=== PATIENT | male | born 1995 | race American Indian/Alaskan Native ===

== ENCOUNTER 2020-09-10 19:45 | Observation (INO) | payer MEDICAID ==
--- NOTE | 2020-09-10 20:21 | Emergency Department Report ---
Blank Doc - Documentation Documentation: This is a 24-year-old male that presents with left inguinal swelling. Exam: Possible incarcerated left inguinal hernia. Unable to reduce. Exam does not show gangrene. 1- This initial assessment/diagnostic orders/clinical plan/ treatment(s) is/are subject to change based on pt's health status, clinical progression and re- assessment by fellow clinical providers in the ED. Further treatment and workup at subsequent clinical provers discretion. Patient/guardians urged not to elope from ED as their condition may be serious if not clinically assessed and managed. 2-labs 3-UA
[2020-09-10 21:29] LABS: Basophils # (Auto) 0.1 K/mm3 (0.0-0.1); Basophils % (Auto) 0.9 % (0.0-1.8); Eosinophils # (Auto) 0.1 K/mm3 (0.0-0.4); Eosinophils % (Auto) 1.4 % (0.0-4.3); Hematocrit 39.1 % (35.5-45.6); Hemoglobin 13.5 gm/dl (11.8-15.2); Lymphocytes % (Auto) 22.7 % (13.4-35.0); Mean Corpuscular HGB Conc 35 % (32-34); Mean Corpuscular Volume 85 fl (84-94); Monocytes # (Auto) 1.2 K/mm3 (0.0-0.8); Monocytes % (Auto) 13.1 % (0.0-7.3); Platelet Count 317 K/mm3 (140-440); Red Blood Count 4.62 M/mm3 (3.65-5.03); Red Cell Distribution Width 13.6 % (13.2-15.2)
[2020-09-10 21:45] LABS: BUN/Creatinine Ratio 10; Blood Urea Nitrogen 10 mg/dL (9-20); Calcium 9.3 mg/dL (8.4-10.2); Hemolysis Index 12
[2020-09-11] MEDS ORDERED: ONDANSETRON 4 MG/2 ML INJ IV ONE (02:14)
[2020-09-11] MEDS ORDERED: MORPHINE 4 MG/1 ML INJ IV ONE (02:14)
--- NOTE | 2020-09-11 02:17 | Emergency Department Report ---
ED Male HPI - General Chief complaint: Skin/Abscess/Foreign Body Stated complaint: LUMP ON GROIN Time Seen by Provider: 09/10/20 19:46 Source: patient Mode of arrival: Ambulatory Limitations: No Limitations - History of Present Illness Initial comments: Chief complaint: "Hernia" HPI: This is a 24-year-old male who presents with left groin hernia which occurred 2 days ago. He did not have a hernia prior to this time. He has a painful bulge in the left groin region. He does not have a history of physical activity heavy straining. He is currently unemployed. Sharp right hand pain without radiation. Worse with movement. Worse with certain positions. He denies fever, vomiting, constipation. MD Complaint: groin pain -: Gradual, days(s) (2 days) Location: left inguinal region Severity: severe Severity scale (0 -10): 8 Quality: aching, sharp Consistency: constant Improves with: supine Worsens with: palpation, movement denies other symptoms - Related Data Allergies Allergy/AdvReac Type Severity Reaction Status Date / Time No Known Allergies Allergy Verified 09/10/20 20:06 ED Review of Systems ROS: Stated complaint: LUMP ON GROIN Other details as noted in HPI Comment: All other systems reviewed and negative Constitutional: denies: fever, malaise Respiratory: denies: cough, shortness of breath Gastrointestinal: denies: abdominal pain, nausea, vomiting Musculoskeletal: denies: back pain ED Past Medical Hx - Past Medical History Previous Medical History?: No - Surgical History Past Surgical History?: No - Social History Smoking Status: Never Smoker Substance Use Type: None ED Physical Exam - General Limitations: No Limitations General appearance: alert, in no apparent distress - Head Head exam: Present: atraumatic, normocephalic - Eye Eye exam: Present: normal appearance - ENT ENT exam: Present: mucous membranes moist - Neck Neck exam: Present: normal inspection, full ROM - Respiratory Respiratory exam: Present: normal lung sounds bilaterally. Absent: respiratory distress, wheezes, rales, rhonchi - Cardiovascular Cardiovascular Exam: Present: regular rate, normal rhythm, normal heart sounds. Absent: systolic murmur, diastolic murmur, rubs, gallop - GI/Abdominal GI/Abdominal exam: Present: soft. Absent: distended, tenderness, guarding, kelsie ound - exam: Present: other (Tender tense bulge at the left inguinal measurement 6 x 3 cm) - Neurological Exam Neurological exam: Present: alert, oriented X3 - Psychiatric Psychiatric exam: Present: normal affect, normal mood - Skin Skin exam: Present: warm, dry, intact, normal color. Absent: rash ED Course Vital Signs 09/10/20 09/11/20 09/11/20 20:08 02:31 02:45 Temperature 98.5 F Pulse Rate 72 52 L Respiratory 16 18 20 Rate Blood Pressure 104/64 117/66 O2 Sat by Pulse 99 100 Oximetry 09/11/20 09/11/20 09/11/20 03:01 03:15 03:31 Temperature Pulse Rate 55 L 56 L 55 L Respiratory 19 12 15 Rate Blood Pressure 117/66 103/67 103/67 O2 Sat by Pulse 98 100 97 Oximetry 09/11/20 09/11/20 09/11/20 03:45 04:15 04:31 Temperature Pulse Rate 52 L 67 52 L Respiratory 14 13 14 Rate Blood Pressure 114/67 114/67 118/71 O2 Sat by Pulse 100 100 Oximetry 09/11/20 05:01 Temperature Pulse Rate 55 L Respiratory 13 Rate Blood Pressure 110/66 O2 Sat by Pulse 99 Oximetry ED Medical Decision Making - Lab Data Result diagrams: 09/10/20 21:01 09/10/20 21:01 - Radiology Data Radiology results: report reviewed CT abdomen pelvis w con INDICATION: left incarcerated inguinal hernia. TECHNIQUE: All CT scans at this location are performed using the following dose modulation technique: Automated exposure control. CONTRAST: Omnipaque 300, 100 cc IV injection. COMPARISON: None available. CT ABDOMEN: The parenchymal organs are unremarkable in appearance. Negative for abdominal mass, fluid or inflammation. The bowel is not dilated or thickened. CT PELVIS: Negative for pelvic mass, fluid or inflammation. No incarcerated hernia is present. Nodes at the left external iliac chain. The largest measures 1.4 cm in the greatest short axis dimension. Enlarged lymph nodes are seen at the left groin with the largest measuring 2.5 x 1.9 cm. One notes demonstrates prominent adjacent inflammation. IMPRESSION: 1. Prominent adenopathy with prominent inflammation adjacent to one of the nodes left groin. 2. Mild adenopathy left external iliac chain. 3. No incarcerated hernia. - Medical Decision Making Initial clinical impression: Incarcerated inguinal hernia after discussion with general surgeon Dr. Henry she recommended CT abdomen pelvis to determine if bowel is involved. CT abdomen pelvis did not reveal incarcerated hernia. Findings included inguinal lymphadenopathy. I reassessed patient after ice therapy, inguinal bulge has mostly resolved. His mobile fluctuant there is no mass present. Patient will be admitted for further treatment evaluation. Dr. Henry graciously agreed to follow patient while admitted to the hospital service. CBC chemistry lactic acid within normal limits. Critical care attestation.: If time is entered above; I have spent that time in minutes in the direct care of this critically ill patient, excluding procedure time. ED Disposition Clinical Impression: Inguinal hernia, Inguinal lymphadenopathy Disposition: OP ADMIT IP TO THIS HOSP Is pt being admited?: Yes Does the pt Need Aspirin: No Condition: Stable
--- NOTE | 2020-09-11 04:40 | Cat Scan Report ---
CT abdomen pelvis w con INDICATION: left incarcerated inguinal hernia. TECHNIQUE: All CT scans at this location are performed using the following dose modulation technique: Automated exposure control. CONTRAST: Omnipaque 300, 100 cc IV injection. COMPARISON: None available. CT ABDOMEN: The parenchymal organs are unremarkable in appearance. Negative for abdominal mass, fluid or inflammation. The bowel is not dilated or thickened. CT PELVIS: Negative for pelvic mass, fluid or inflammation. No incarcerated hernia is present. Nodes at the left external iliac chain. The largest measures 1.4 cm in the greatest short axis dimension. Enlarged lymph nodes are seen at the left groin with the largest measuring 2.5 x 1.9 cm. One notes de monstrates prominent adjacent inflammation. IMPRESSION: 1. Prominent adenopathy with prominent inflammation adjacent to one of the nodes left groin. 2. Mild adenopathy left external iliac chain. 3. No incarcerated hernia. Signer Name: Karson Caicedo MD Signed: 09/11/2020 4:36 AM Workstation Name: [id number]
[2020-09-11] MEDS ORDERED: ONDANSETRON 4 MG/2 ML INJ IV PRN (04:55)
[2020-09-11] MEDS ORDERED: MORPHINE 2 MG/1 ML INJ IV PRN (04:55)
[2020-09-11] MEDS ORDERED: ACETAMINOPHEN 325 MG TAB PO PRN (04:55)
--- NOTE | 2020-09-11 05:12 | History and Physical Report ---
History of Present Illness Date of examination: 09/11/20 Date of admission: 09/11/2020 Chief complaint: Abdominal Pain History of present illness: 24-year-old -[place] male presenting to the emergency room today complaining of left groin swelling and pain for 2 days. He denies any fall or trauma to the left groin. Swelling appeared as a bulge and has become increasingly painful. He denies any fever or chills, no nausea vomiting, no diarrhea and no constipation. Denies any dysuria or hematuria, denies any urethral discharge. Abdominal pain is said to be sharp. No no relieving or exacerbating factor. Pain is worse on activity. CT of the abdomen and pelvis reveals: 1. Prominent adenopathy with prominent inflammation adjacent to one of the nodes left groin. 2. Mild adenopathy left external iliac chain. 3. No incarcerated hernia. General surgeon Dr. Henry has been consulted for evaluation. Past History Past Medical History: No medical history Past Surgical History: No surgical history Social history: no significant social history Family history: no significant family history Medications and Allergies Allergies Allergy/AdvReac Type Severity Reaction Status Date / Time No Known Allergies Allergy Verified 09/10/20 20:06 Active Meds: Active Medications Acetaminophen (Acetaminophen 325 Mg Tab) 650 mg PO Q4H PRN PRN Reason: Pain MILD(1-3)/Fever >100.5/CAZARES Sodium Chloride (Nacl 0.9% 1000 Ml) 1,000 mls @ 125 mls/hr IV DIRECT JOSE J Morphine Sulfate (Morphine 2 Mg/1 Ml Inj) 2 mg IV Q4H PRN PRN Reason: Pain, Moderate (4-6) Ondansetron HCl (Ondansetron 4 Mg/2 Ml Inj) 4 mg IV Q8H PRN PRN Reason: Nausea And Vomiting Sodium Chloride (Sodium Chloride 0.9% 10 Ml Flush Syringe) 10 ml IV BID JOSE J Sodium Chloride (Sodium Chloride 0.9% 10 Ml Flush Syringe) 10 ml IV PRN PRN PRN Reason: LINE FLUSH Review of Systems Constitutional: no fever, no chills Ears, nose, mouth and throat: no nasal congestion, no sore throat Cardiovascular: no chest pain, no palpitations Respiratory: no cough, no shortness of breath Gastrointestinal: abdominal pain, no nausea, no vomiting, no diarrhea, no constipation Genitourinary Male: no dysuria, no hematuria, no flank pain, no nocturia Musculoskeletal: no neck pain, no low back pain Integumentary: no rash, no pruritis Neurological: no headaches, no confusion Psychiatric: no anxiety, no depression Exam - Constitutional Vitals: Temp Pulse Resp BP Pulse Ox 98.5 F 52 L 14 118/71 100 09/10/20 20:08 09/11/20 04:31 09/11/20 04:31 09/11/20 04:31 09/11/20 04:31 General appearance: Present: no acute distress, well-nourished - EENT Eyes: Present: PERRL, EOM intact. Absent: scleral icterus ENT: hearing intact, clear oral mucosa, dentition normal - Neck Neck: Present: supple, normal ROM - Respiratory Respiratory effort: normal Respiratory: bilateral: CTA - Cardiovascular Rhythm: regular Heart Sounds: Present: S1 & S2. Absent: gallop, systolic murmur, diastolic murmur, rub, click - Extremities Extremities: no ischemia, pulses intact, pulses symmetrical, No edema, normal temperature, normal color, Full ROM Peripheral Pulses: within normal limits - Abdominal General gastrointestinal: Present: soft, tender, non-distended, normal bowel sounds, mass (Tender left inguinal mass, moderate guarding, no rebound tenderness) - Integumentary Integumentary: Present: clear, warm, dry. Absent: rash - Musculoskeletal Musculoskeletal: strength equal bilaterally - Psychiatric Psychiatric: appropriate mood/affect, intact judgment & insight, memory intact, cooperative - Neurologic Neurologic: CNII-XII intact, no focal deficits, moves all extremities Results - Labs CBC & Chem 7: 09/10/20 21:01 09/10/20 21:01 Labs: Abnormal lab results 09/10/20 09/11/20 Range/Units 21:01 02:25 MCHC 35 H (32-34) % [place] % (Auto) 13.1 H (0.0-7.3) % [place] # (Auto) 1.2 H (0.0-0.8) K/mm3 Lactic Acid 0.60 L (0.7-2.0) mmol/L Assessment and Plan - Patient Problems (1) Inguinal lymphadenopathy Current Visit: Yes Status: Acute Plan to address problem: Etiology is unclear. Possibly due to an underlying infection. General surgeon has been consulted for evaluation. Patient placed on analgesic medication and empiric IV antibiotics meanwhile. (2) DVT prophylaxis Current Visit: Yes Status: Acute Plan to address problem: Patient placed on sequential compression device. (3) Full code status Current Visit: Yes Status: Acute Plan to address problem: Patient is full code.
[2020-09-11] MEDS: SODIUM CHLORIDE 0.9% 1000 ML 1,000 ML IV SCH ×2 (07:07→18:28)
[2020-09-11] MEDS: PIPERACIL/TAZOBACTA 4.5/NS 100 4.5 GM/100 ML VIAL IV SCH ×2 (07:43→13:36)
--- NOTE | 2020-09-11 13:11 | Consultation ---
History of Present Illness Consult date: 09/11/20 Chief complaint: Left groin pain - History of present illness History of present illness: 24-year-old male with no past medical history presented to the emergency room with 5 to 7 days of worsening discomfort and pain in his left groin. The patient states he noticed a bulge in the area which was painful. He has never had anything like this before. It came on suddenly. He states that the pain is exacerbated when he moves. It is completely resolved when he lays still and finds a comfortable position. He denies any recent illnesses. No cough, shortness of breath, chest pain, abdominal pain, nausea, vomiting, diarrhea. No dysuria. No recent trauma. No swelling in the legs. He was initially felt to have a left inguinal hernia on exam by the ER provider but CT scan revealed severe left inguinal lymphadenopathy. Patient states that he is sexually active and admits to unprotected sex. He also relays a history of cancer in his family but does not know what kind. Past History Past Medical History: No medical history Past Surgical History: No surgical history Social history: no significant social history Family history: no significant family history Medications and Allergies Allergies Allergy/AdvReac Type Severity Reaction Status Date / Time No Known Allergies Allergy Verified 09/10/20 20:06 Active Meds: Active Medications Acetaminophen (Acetaminophen 325 Mg Tab) 650 mg PO Q4H PRN PRN Reason: Pain MILD(1-3)/Fever >100.5/CAZARES Sodium Chloride (Nacl 0.9% 1000 Ml) 1,000 mls @ 125 mls/hr IV DIRECT JOSE J Last Admin: 09/11/20 07:07 Dose: 125 mls/hr Documented by: Piperacillin Sod/Tazobactam Sod (Zosyn/Ns 4.5gm/100ml) 4.5 gm in 100 mls @ 200 mls/hr IV Q8H JOSE J; Protocol Last Admin: 09/11/20 07:43 Dose: 200 mls/hr Documented by: Morphine Sulfate (Morphine 2 Mg/1 Ml Inj) 2 mg IV Q4H PRN PRN Reason: Pain, Moderate (4-6) Ondansetron HCl (Ondansetron 4 Mg/2 Ml Inj) 4 mg IV Q8H PRN PRN Reason: Nausea And Vomiting Sodium Chloride (Sodium Chloride 0.9% 10 Ml Flush Syringe) 10 ml IV BID JOSE J Sodium Chloride (Sodium Chloride 0.9% 10 Ml Flush Syringe) 10 ml IV PRN PRN PRN Reason: LINE FLUSH Review of Systems All systems: negative (10 point ROS performed and negative except for that listed in HPI) Exam Vital Signs Temp Pulse Resp BP Pulse Ox 98.5 F 72 16 104/64 99 09/10/20 20:08 09/10/20 20:08 09/10/20 20:08 09/10/20 20:08 09/10/20 20:08 Narrative exam: Gen.: Awake, alert, oriented 3. No apparent distress ENT: Trachea midline. No lymphadenopathy. No scleral icterus or conjunctival pallor CV: S1, S2 present Respiratory: No audible wheezes Abdomen: Soft, nondistended, nontender. No rebound, rigidity, guarding. Left inguinal lymphadenopathy, tenderness on exam Extremities: No clubbing, cyanosis, edema Results - Labs 09/10/20 21:01 09/10/20 21:01 Abnormal lab results 09/10/20 09/11/20 Range/Units 21:01 02:25 MCHC 35 H (32-34) % [place] % (Auto) 13.1 H (0.0-7.3) % [place] # (Auto) 1.2 H (0.0-0.8) K/mm3 Lactic Acid 0.60 L (0.7-2.0) mmol/L Diabetes panel 09/10/20 Range/Units 21:01 Sodium 138 (137-145) mmol/L Potassium 3.7 (3.6-5.0) mmol/L Chloride 101.2 (98-107) mmol/L Carbon Dioxide 26 (22-30) mmol/L BUN 10 (9-20) mg/dL Creatinine 1.0 (0.8-1.3) mg/dL Glucose 91 (75-100) mg/dL Calcium 9.3 (8.4-10.2) mg/dL Calcium panel 09/10/20 Range/Units 21: Calcium 9.3 (8.4-10.2) mg/dL Pituitary panel 09/10/20 Range/Units 21:01 Sodium 138 (137-145) mmol/L Potassium 3.7 (3.6-5.0) mmol/L Chloride 101.2 (98-107) mmol/L Carbon Dioxide 26 (22-30) mmol/L BUN 10 (9-20) mg/dL Creatinine 1.0 (0.8-1.3) mg/dL Glucose 91 (75-100) mg/dL Calcium 9.3 (8.4-10.2) mg/dL Adrenal panel 09/10/20 Range/Units 21:01 Sodium 138 (137-145) mmol/L Potassium 3.7 (3.6-5.0) mmol/L Chloride 101.2 (98-107) mmol/L Carbon Dioxide 26 (22-30) mmol/L BUN 10 (9-20) mg/dL Creatinine 1.0 (0.8-1.3) mg/dL Glucose 91 (75-100) mg/dL Calcium 9.3 (8.4-10.2) mg/dL - Imaging CT scan - abdomen: report reviewed, image reviewed CT scan - pelvis: report reviewed, image reviewed Assessment and Plan 24-year-old male with left inguinal lymphadenopathy, etiology unknown Pt stable. AF. VSS. No hernia on exam or CT Plan: 1. Reg diet 2. prn pain control 3. empiric abx 4. recommend ID consult 5. recommend STD and HIV testing 6. UA pending 7. Will await ID eval to determine if biopsy is necessary Plan discussed in detail with the patient. All questions answered. Thank you for this consultation. Please call with any questions or concerns. Evaluation and treatment of this patient was during the time of the national and state emergency arising from COVID19 coronavirus pandemic. Treatment and proced ures performed meet the current and available best practice and guidelines for patient during the COVID pandemic.
[2020-09-11 13:56] LABS: Bilirubin,Urine NEG (Negative); Blood,Urine NEG (Negative); Color,Urine Yellow (Yellow); Mucus,Urine FEW /HPF; Protein,Urine <15 mg/dL mg/dL (Negative); Urobilinogen,Urine < 2.0 mg/dL (<2.0)
[2020-09-11] MEDS ORDERED: cefTRIAXone/NS 2 GM/100 ML 2 GM/100 ML BAG IV SCH (14:00)
--- NOTE | 2020-09-11 14:07 | Consultation ---
History of Present Illness - Reason for Consult Consult date: 09/11/20 lymphadenopathy Requesting physician: KIM GREGORY - History of Present Illness The patient is a 24-year-old male with no significant past medical history came to the emergency room with complaints of left groin swelling and pain that began just 2 days prior to admission. CT scan revealed findings of left inguinal lymphadenopathy. Infectious diseases was consulted for additional evaluation. Patient has been sexually active with females, reports 2 partners over the last 1 year. Denies any MSM behavior. Denies IV drug use or recreational drug use, denies any animal exposure. Patient denies any penile lesions however on exam, was noted to have a penile chancre. Review of Systems: General: no fevers,chills or rigors HEENT: no new visual disturbance Respiratory: No cough, sputum, hemoptysis or shortness of breath Cardiovascular: No chest pain, syncope Gastrointestinal: No nausea, vomiting or diarrhea Genitourinary: No dysuria or hematuria Musculoskeletal: No new or worsening neck pain or back pain Neurologic: No headaches, seizures Hematologic: No easy bruising or bleeding Endocrine: No night sweats or acute weight loss Skin: negative for rash, jaundice Psychiatric: No suicidal or homicidal ideation Past History Past Medical History: No medical history Past Surgical History: No surgical history Social history: no significant social history Family history: no significant family history Medications and Allergies Allergies Allergy/AdvReac Type Severity Reaction Status Date / Time No Known Allergies Allergy Verified 09/10/20 20:06 Active Meds: Active Medications Acetaminophen (Acetaminophen 325 Mg Tab) 650 mg PO Q4H PRN PRN Reason: Pain MILD(1-3)/Fever >100.5/CAZARES Azithromycin (Azithromycin 250 Mg Tab) 1,000 mg PO QDAY JOSE J; Protocol Stop: 09/12/20 13:59 Sodium Chloride (Nacl 0.9% 1000 Ml) 1,000 mls @ 125 mls/hr IV DIRECT JOSE J Last Admin: 09/11/20 07:07 Dose: 125 mls/hr Documented by: Piperacillin Sod/Tazobactam Sod (Zosyn/Ns 4.5gm/100ml) 4.5 gm in 100 mls @ 200 mls/hr IV Q8H JOSE J; Protocol Last Admin: 09/11/20 13:36 Dose: 200 mls/hr Documented by: Ceftriaxone Sodium (Rocephin/Ns 2 Gm/100 Ml) 2 gm in 100 mls @ 200 mls/hr IV Q24HR [facility]; Protocol Morphine Sulfate (Morphine 2 Mg/1 Ml Inj) 2 mg IV Q4H PRN PRN Reason: Pain, Moderate (4-6) Ondansetron HCl (Ondansetron 4 Mg/2 Ml Inj) 4 mg IV Q8H PRN PRN Reason: Nausea And Vomiting Sodium Chloride (Sodium Chloride 0.9% 10 Ml Flush Syringe) 10 ml IV BID [facility] Last Admin: 09/11/20 13:36 Dose: 10 ml Documented by: Sodium Chloride (Sodium Chloride 0.9% 10 Ml Flush Syringe) 10 ml IV PRN PRN PRN Reason: LINE FLUSH Physical Examination - Physical Exam Narrative exam: Physical Exam: Constitutional: Alert, cooperative. No acute distress Head, Ears, Nose: Normocephalic, atraumatic. External ears, nose normal Eyes: Conjunctivae/corneas clear. No icterus. No ptosis. Neck: Supple, no meningeal signs Cardiovascular: S1, S2 normal. Respiratory: Good air entry, clear to auscultation bilaterally GI: Soft, non-tender; bowel sounds normal. No peritoneal signs : Penile chancre present Musculoskeletal: No pedal edema, no cyanosis. Skin: No rash or abscess Hem/Lymphatic: Left inguinal LN + with tenderness Psych: Mood ok. Affect normal Neurological: Awake, alert, oriented. No gross abnormality - Constitutional Vitals: Vital Signs Temp Pulse Resp BP Pulse Ox 98.8 F 64 18 113/68 98 09/11/20 11:35 09/11/20 11:35 09/11/20 11:35 09/11/20 11:35 09/11/20 11:35 Temperature -Last 24 Hours Temperature 98.8 F Temperature 98.3 F Temperature 98.5 F Results - Labs CBC & Chem 7: 09/10/20 21:01 09/10/20 21:01 Labs: Abnormal lab results 09/10/20 09/11/20 09/11/20 Range/Units 21:01 02:25 13:06 MCHC 35 H (32-34) % [place] % (Auto) 13.1 H (0.0-7.3) % [place] # (Auto) 1.2 H (0.0-0.8) K/mm3 Lactic Acid 0.60 L (0.7-2.0) mmol/L Ur Specific [place] 1.057 H (1.003-1.030) Urine WBC (Auto) 8.0 H (0.0-6.0) /HPF - Imaging and Cardiology CT scan - pelvis: report reviewed, image reviewed (left inguinal lymph nodes) Assessment and Plan A/P: 24/M with: #Left inguinal lymphadenopathy: no cat/animal exposure, no left leg wounds/cellulitis #Penile chancre Recs: -STD testing: HIV, syphilis, GC -Empiric treatments ordered: Ceftriaxone, azithromycin and 1 dose of IM penicillin 2,400,000 units -ID clinic follow-up in 1 week -Ok for discharge later today once above completed Saskia Valdez MD, FACP [facility] ([facility] O: [phone] F: [phone]
[2020-09-11] MEDS ORDERED: AZITHROMYCIN 250 MG TAB PO NR (15:00)
[2020-09-11] MEDS ORDERED: PENICILLIN G BENZATHINE 1.2 MILLION UNIT/2 ML INJ IM NR (15:00)
[2020-09-11 17:41] VITALS: BP 116/64
--- NOTE | 2020-09-11 18:49 | Discharge Summary ---
Providers - Providers Date of Admission: 09/11/20 04:55 Date of discharge: 09/11/20 Attending physician: HEMA STOKES 09/11/20 04:55 Consult to Physician [CONS] Routine Comment: Consulting Provider: KIM GREGORY Physician Instructions: Reason For Exam: Left inguinal swelling. 09/11/20 05:22 Consult to Physician [CONS] Stat Comment: Consulting Provider: KIM GREGORY Physician Instructions: Reason For Exam: inguinal hernia 09/11/20 12:32 Consult to Physician [CONS] Routine Comment: Consulting Provider: JENN SWANSON Physician Instructions: Reason For Exam: inguinal LAD, etiology? Primary care physician: HEEL GUMMER Hospitalization Condition: Stable Hospital course: 24-year-old -[place] male presenting to the emergency room today complaining of left groin swelling and pain for 2 days. He denies any fall or trauma to the left groin. Swelling appeared as a bulge and has become increasingly painful. He denies any fever or chills, no nausea vomiting, no diarrhea and no constipation. Denies any dysuria or hematuria, denies any urethral discharge. Abdominal pain is said to be sharp. No no relieving or exacerbating factor. Pain is worse on activity. CT of the abdomen and pelvis reveals: 1. Prominent adenopathy with prominent inflammation adjacent to one of the nodes left groin. 2. Mild adenopathy left external iliac chain. 3. No incarcerated hernia. General surgeon Dr. Gregory has been consulted for evaluation. A/P: 24/M with: #Left inguinal lymphadenopathy: no cat/animal exposure, no left leg wounds/cellulitis #Penile chancre Recs: -STD testing: HIV, syphilis, GC -Empiric treatments ordered: Ceftriaxone, azithromycin and 1 dose of IM penicillin 2,400,000 units -ID clinic follow-up in 1 week -Ok for discharge later today once above completed Disposition: - TO HOME OR SELFCARE - Discharge Diagnoses (1) Inguinal lymphadenopathy Status: Acute (2) Syphilid Status: Acute (3) Syphilis in male Status: Acute Comment: treated (4) STD exposure Status: Acute Comment: Ceftriaxone and Zithromax given Core Measure Documentation - Palliative Care Palliative Care/ Comfort Measures: Not Applicable - Core Measures Any of the following diagnoses?: none Exam - Constitutional Vitals: Temp Pulse Resp BP Pulse Ox 98.7 F 62 18 116/64 98 09/11/20 16:00 09/11/20 16:00 09/11/20 16:00 09/11/20 16:00 09/11/20 16:00 General appearance: Present: no acute distress, well-nourished - EENT Eyes: Present: PERRL ENT: hearing intact, clear oral mucosa - Neck Neck: Present: supple, normal ROM - Respiratory Respiratory effort: normal Respiratory: bilateral: CTA - Cardiovascular Heart rate: 78 Rhythm: regular Heart Sounds: Present: S1 & S2. Absent: rub, click - Extremities Extremities: pulses symmetrical, No edema Peripheral Pulses: within normal limits - Abdominal General gastrointestinal: Present: soft, non-tender, non-distended, normal bowel sounds Male genitourinary: Present: normal - Integumentary Integumentary: Present: clear, warm, dry - Musculoskeletal Musculoskeletal: gait normal, strength equal bilaterally - Psychiatric Psychiatric: appropriate mood/affect, intact judgment & insight - Neurologic Neurologic: CNII-XII intact, moves all extremities - Allied Health Allied health notes reviewed: nursing, case management Plan Activity: no restrictions Diet: regular Follow up with: PRIMARY MD SHARI [Primary Care Provider] - 7 Days JENN SWANSON MD [Staff Physician] - 7 Days
[2020-09-12] MEDS ORDERED: FLU VACC QUAD 2020-2021 (6 months +)/PF 60 0.5 ML SYRINGE IM ONE (12:00)
== END 2020-09-11 20:30 | disposition home or self-care (01) ==
LOC: ED 19:45 → 3B-SURG 09-11 04:55 → 3A 09-11 05:56 → 3B-SURG 09-11 05:59 → 3A 09-11 06:17 → 3B-SURG 09-11 06:19
PROVIDERS: ADMIT Internal Medicine Geriatric Medicine; ATTEND Internal Medicine
DX: K40.90 Unilateral inguinal hernia, without obstruction or gangrene, not specified as recurrent (principal); A51.0 Primary genital syphilis; A53.9 Syphilis, unspecified; R59.1 Generalized enlarged lymph nodes; Z20.2 Contact with and (suspected) exposure to infections with a predominantly sexual mode of transmission
CPT/HCPCS: 36415; 74177; 80048; 81001; 82140; 85025; 86592; 86593; 87591; 87806; 96361; 96365; 96366; 96367; 96372; 96375; 96376; 99285; G0378; J0561; J0696; J2270; J2405; J2543; J7030; Q9967